=== PATIENT | female | born 1980 | race African-American/Black ===

== ENCOUNTER 2017-04-09 21:15 | Observation (INO) | payer OTHER ==
[~2017-04-09] VITALS: Ht 154.9 cm; Wt 61.2 kg
[~2017-04-09 21:15] MED LIST: DILT240C92 PO; LEVO75TA7 PO
[2017-04-09] MEDS ORDERED: ASPIRIN 81MG TABLET PO STA (22:17)
[2017-04-09] MEDS ORDERED: NITROGLYCERIN 0.4MG TABLET SL SL PRN (22:30)
[2017-04-09 22:40] LABS: BASOPHILS % 0.8 % (0.0-2.0); EOSINOPHILS % 4.8 % (0.0-5.0); HEMATOCRIT. 38.7 % (36.0-48.0); LYMPHOCYTES % 29.4 % (20.0-50.0); MEAN CORPUSCULAR HEMOGLOBIN 29.2 pg (28.0-32.0); MEAN CORPUSCULAR VOLUME 86.9 fL (81.0-99.0); MEAN PLATELET VOLUME 7.6 fl (7.4-10.4); MONOCYTES % 9.3 % (2.0-8.0); NEUTROPHILS % 55.7 % (40.0-76.0); PLATELET 228 x1000/uL (130-400); RED BLOOD CELL COUNT 4.46 mill/uL (4.2-5.4); RED CELL DISTRIBUTION WIDTH 16.2 % (11.6-14.6)
[2017-04-09 22:46] LABS: CHLORIDE 107 mEq/L (98-107)
[2017-04-09 22:47] LABS: HCG SCREEN NEGATIVE
[2017-04-09 22:50] LABS: D-DIMER 0.36 mg/L FEU (<0.50); INR 1.1; PARTIAL THROMBOPLASTIN TIME 26.4 sec (23.4-31.0); PROTHROMBIN TIME 11.9 sec (9.4-11.6)
[2017-04-09 22:53] LABS: CARBON DIOXIDE 27 mEq/L (21-32)
[2017-04-09 22:56] LABS: TROPONIN I < 0.02 ng/mL (0.00-0.04)
[2017-04-10 07:29] VITALS: BP 137/88
[2017-04-10] MEDS ORDERED: LEVOTHYROXINE SODIUM 100MCG TABLET PO SCH (07:45)
[2017-04-10] MEDS ORDERED: ACETAMINOPHEN 325MG TABLET PO PRN (07:45)
[2017-04-10 08:44] VITALS: BP 137/88
[2017-04-10] MEDS ORDERED: ENOXAPARIN 40MG/0.4ML SYR SUBCUT SCH (09:00)
[2017-04-10] MEDS ORDERED: DILTIAZEM HCL 240MG ER (24HR) PO SCH (09:00)
[2017-04-10] MEDS ORDERED: ASPIRIN 81MG EC TABLET PO SCH (09:00)
[2017-04-10] MEDS ORDERED: FERR-71 PO (09:08)
[2017-04-10 11:42] VITALS: BP 111/76
[2017-04-10] MEDS ORDERED: POTASSIUM CHLORIDE 20MEQ TABLET SR PO SCH (12:45)
[2017-04-10] MEDS ORDERED: MAGNESIUM 2 G PREMIX 50 ML IV PRN (12:45)
[2017-04-10 13:46] VITALS: BP 111/76
== END 2017-04-10 15:25 | disposition home or self-care (01) ==
LOC: EDBEDREQTM 23:47 → EDBEDREQ 23:47 → ER 04-10 00:04 → 8WST 04-10 00:05 → INTOOBSV 04-10 00:05 → CANRESERV 04-10 00:13 → ENRESERV 04-10 00:13
PROVIDERS: ADMIT Internal Medicine; ATTEND Internal Medicine
DX: R07.89 Other chest pain (principal); I10 Essential (primary) hypertension; F41.1 Generalized anxiety disorder; E03.9 Hypothyroidism, unspecified; Z83.3 Family history of diabetes mellitus; Z87.01 Personal history of pneumonia (recurrent)
CPT/HCPCS: 36415; 71010; 80048; 80061; 83735; 84443; 84484; 84703; 85025; 85379; 85610; 85730; 93005; 99285; G0378; J1650

== ENCOUNTER 2017-06-16 18:24 | Emergency (ER) | payer OTHER ==
[~2017-06-16] VITALS: Ht 175.3 cm; Wt 59.0 kg
[~2017-06-16 18:24] MED LIST changes: +FERR-71 PO
[2017-06-16] MEDS ORDERED: IBUPROFEN 600MG TABLET PO ONE (22:30)
[2017-06-16 23:29] LABS: BASOPHILS % 0.8 % (0.0-2.0); EOSINOPHILS % 3.8 % (0.0-5.0); HEMATOCRIT. 39.4 % (36.0-48.0); LYMPHOCYTES % 19.4 % (20.0-50.0); MEAN CORPUSCULAR HEMOGLOBIN 29.7 pg (28.0-32.0); MEAN CORPUSCULAR VOLUME 89.7 fL (81.0-99.0); MEAN PLATELET VOLUME 7.7 fl (7.4-10.4); MONOCYTES % 9.6 % (2.0-8.0); NEUTROPHILS % 66.4 % (40.0-76.0); PLATELET 217 x1000/uL (130-400); RED BLOOD CELL COUNT 4.39 mill/uL (4.2-5.4); RED CELL DISTRIBUTION WIDTH 13.4 % (11.6-14.6)
[2017-06-16 23:41] LABS: CARBON DIOXIDE 28 mEq/L (21-32); CHLORIDE 105 mEq/L (98-107)
[2017-06-16 23:52] LABS: T4 FREE 1.57 ng/dL (0.76-1.46)
[2017-06-17 01:15] VITALS: BP 131/75
== END 2017-06-17 01:22 | disposition home or self-care (01) ==
LOC: ER 18:58
DX: J40 Bronchitis, not specified as acute or chronic (principal); I10 Essential (primary) hypertension; E03.9 Hypothyroidism, unspecified; J84.10 Pulmonary fibrosis, unspecified
CPT/HCPCS: 36415; 80048; 81025; 84439; 84443; 84481; 85025; 99285

== ENCOUNTER 2017-08-15 20:50 | Emergency (ER) | payer SELFPAY ==
[~2017-08-15] VITALS: Ht 154.9 cm; Wt 56.0 kg
[2017-08-15 21:39] VITALS: BP 157/85
== END 2017-08-16 02:30 | disposition left against medical advice (07) ==
LOC: ER 22:03
DX: R06.02 Shortness of breath (principal); Z53.21 Procedure and treatment not carried out due to patient leaving prior to being seen by health care provider